=== PATIENT | female | born 1980 | race Caucasian/White ===

== ENCOUNTER 2023-12-26 08:10 | Outpatient (CLI) | payer BC, SELFPAY ==
[2023-12-26 12:45] LABS: Hematocrit 39.8 % (37.0-47.0); Hemoglobin 12.7 g/dL (12.0-15.0); Mean Corpuscular HGB Conc 31.9 g/dl (32-36); Mean Corpuscular Hemoglobin 30.4 pg (26-34); Mean Corpuscular Volume 95.2 fl (80-100); Mean Platelet Volume 10.7 fl (7.4-10.4); Platelet Count Result 312 k/mm3 (150-375); Red Blood Count 4.18 M/mm3 (4.2-5.4); White Blood Count 6.2 K/mm3 (4.5-10.0)
[2023-12-26 14:17] LABS: Alanine Aminotransferase 13 U/L (6-35); Albumin Level 4.3 g/dL (3.5-5.1); Alkaline Phosphatase 44 U/L (38-126); Anion Gap 8 mmol/L (4-12); Aspartate Amino Transferase 45 U/L (14-36); Bilirubin,Total 0.7 mg/dL (0.2-1.3); Blood Urea Nitrogen 16 mg/dL (7-17); Calcium 9.6 mg/dL (8.4-10.2); Carbon Dioxide 29 mmol/L (22-30); Chloride 106 mmol/L (98-107); Cholesterol 227 mg/dL (0-200); Estimated Glomerular Filt Rate > 60; Glucose 92 mg/dL (65-110); HDL Direct 46 mg/dL; Sodium 143 mmol/L (137-145); Triglycerides 70 mg/dL (<150)
[2023-12-26 14:28] LABS: LDL Cholesterol Direct 148 mg/dL
[2023-12-26 21:52] LABS: Vitamin D 25 Hydroxy 17.3 ng/mL
[2024-01-06 20:34] LABS: Factor V (Leiden) Mutation NEGATIVE
== END 2023-12-26 08:11 | disposition home or self-care (01) ==
LOC: ANHGOSHLAB 08:11
PROVIDERS: PCP Nurse Practitioner; Visit Provider Nurse Practitioner
DX: D68.9 Coagulation defect, unspecified (principal); Z76.89 Persons encountering health services in other specified circumstances; E55.9 Vitamin D deficiency, unspecified; I49.9 Cardiac arrhythmia, unspecified; E78.5 Hyperlipidemia, unspecified
CPT/HCPCS: 36415; 80053; 80061; 81241; 82306; 84443; 85027; 85303; 85306